=== PATIENT | female | born 1985 | race African-American/Black ===

== ENCOUNTER 2016-09-30 08:48 | Emergency (ER) | payer OTHER ==
[~2016-09-30] VITALS: Ht 165.1 cm; Wt 95.2 kg
--- NOTE | ~2016-09-30 | US134 ---
[facility] A Service of [facility] & [facility] RADIOLOGY TEXT RESULTS PATIENT: TRU MUKHERJEE LOCATION: [facility] : 81 UNIT #: [id number] AGE: [address]: Maru Perales SEX: F ORDER DR: [id number] [facility] [address] [place], [place] [address] [id number] E MR#: [id number] Acc #: [id number] NAME: TRU MUKHERJEE : 1985 SEX: F STUDY DATE/TIME: 09/30/2016 14:59 UNIT: [facility] ROOM: STUDY DESCRIPTION: US Transvaginal Attending Physician: Maru Perales Pa-C Ordering Physician: Ed Doc Isaac Donovan Primary Care Physician: No Primary Care Physician MEDICAL IMAGING REPORT This report is preliminary unless electronic signature is present EXAM Transvaginal pelvic ultrasound. INDICATIONS Right-sided pelvic pain for one day with history of ovarian cyst. TECHNIQUE Transabdominal images were limited and the ovaries cannot be seen transabdominally. FINDINGS On transvaginal images, the uterus is about 8.7 x 4.4 x 5.2 cm. The endometrial tissue is normal at about 12 mm in thickness. The right and left ovaries are visualized and they are about 3.5 cm in diameter, and no cysts are identified. There is normal flow in each ovary. IMPRESSION Normal pelvic ultrasound. No cause for right pelvic pain is identified. Dictated by... Syed Ramos M.D. THIS IS AN ELECTRONICALLY VERIFIED REPORT Syed Ramos M.D. at 09/30/2016 8:15 PM VANDANA/ean TD: 09/30/2016 19:54 JOB #: [id number] MEDICAL IMAGING REPORT Page 1 of 1 COPY
--- NOTE | ~2016-09-30 | CT2 ---
[facility] A Service of [facility] & [facility] RADIOLOGY TEXT RESULTS PATIENT: TRU MUKHERJEE LOCATION: [facility] : 81 UNIT #: [id number] AGE: [address]: Maru Perales SEX: F ORDER DR: [id number] [facility] [address] [place], [place] [address] [id number] E MR#: [id number] Acc #: [id number] NAME: TRU MUKHERJEE : 1985 SEX: F STUDY DATE/TIME: 09/30/2016 12:29 UNIT: [facility] ROOM: STUDY DESCRIPTION: CT Abd and Pelv W Cont Attending Physician: Maru Perales Pa-C Ordering Physician: Ed Doctor [id number] [facility] Primary Care Physician: Primary Care Physician No MEDICAL IMAGING REPORT This report is preliminary unless electronic signature is present EXAM CT abdomen and pelvis, 09/30/2016 HISTORY Vomiting, right lower quadrant pain since 09/29/2016. TECHNIQUE CT abdomen and pelvis performed with intravenous administration of 100 mL Isovue-370. This CT exam was performed with one or more of the following radiation dose reduction techniques: automatic exposure control, adjustment of mA and/or kV according to patient size, and iterative reconstruction. FINDINGS The special procedures technologist indicates the patient was scratching various places after examination. The patient stated she was itching before the IV contrast and that this was normal for her. special procedures technologist indicates the patient had no trouble breathing and did not have any evidence of hives. The patient's emergency room nurse was notified of events. The lungs show minimal dependent atelectasis. At the left lung base posterolaterally on image 14 there is a 4.3 mm nodule and just inferolateral to this there is a 2.7 mm nodule. There is a small right middle lobe 2.4 mm nodule on image #1. The inferior heart and pericardium are unremarkable. Liver appears relatively low in overall density suggesting fatty infiltration. The gallbladder, spleen, pancreas, adrenal glands, kidneys unremarkable. Liver is mildly enlarged at 18.3 cm in craniocaudal extent. CT PELVIS: No inguinal adenopathy. Urinary bladder, uterus and adnexal regions show prior tubal ligation. Hypodense but not clearly simple cystic structure in the right ovary measuring up to about 3.2 cm in STS. [facility] A Service of [facility] RADIOLOGY TEXT RESULTS PATIENT: TRU UMKHERJEE LOCATION: [facility] : 81 UNIT #: [id number] AGE: [address]: Maru Perales SEX: F ORDER DR: maximum diameter. Probably complicated physiologic cyst given this patient's age. It could be further evaluated with elective pelvic ultrasound. There is no free fluid in the pelvis. No pelvic or retroperitoneal adenopathy. The distal esophagus, stomach, small bowel unremarkable. Appendix normal. Colon shows a few scattered uncomplicated colonic diverticula. The vascular structures are unremarkable. The bony structures show no acute abnormality. IMPRESSION 1. 3.2 cm hypodense but not simple cystic appearing structure in the right ovary. Probably complicated physiologic cyst given the patient's young age. Best further characterized with pelvic ultrasound inclusive of transvaginal imaging. This could be performed on an elective basis. The uterus and adnexal regions otherwise notable only for evidence of prior tubal ligation. 2. Fatty filtration of liver. No focal parenchymal abnormality. Mild hepatic enlargement. 3. Gallbladder, pancreas, kidneys, appendix normal. 4. A few scattered colonic uncomplicated diverticula are present. 5. Bilateral subpleural noncalcified pulmonary nodules. Largest measuring 4.0 mm at left lung base. If patient has risk factors for pulmonary malignancy such as history of tobacco usage, 12-month CT followup would be recommended unless there are outside studies demonstrating prolonged stability. If the patient does not have risk factors for pulmonary malignancy, no additional followup recommended. Dictated by... Cecil Flores M.D. THIS IS AN ELECTRONICALLY VERIFIED REPORT Cecil Flores M.D. at 10/01/2016 2:46 PM Dave TD: 09/30/2016 15:42 JOB #: [id number] MEDICAL IMAGING REPORT Page 1 of 1 COPY
[2016-09-30 10:38] LABS: BASOPHIL% 0.5 % (0-2.5); EOSINOPHIL# 0.2 X10e3 (0-0.7); EOSINOPHIL% 2.3 % (0.0-7.0); HEMATOCRIT 38.9 % (35.0-45.0); HEMOGLOBIN 12.6 gm/dL (12.0-16.0); LYMPHOCYTE# 2.1 X10e3 (1.0-3.5); LYMPHOCYTE% 30.2 % (17.0-45.0); MEAN CELL VOLUME 85.3 FL (83-96); MEAN CORPUSCULAR HEMOGLOBIN 27.5 PG (28-34); MEAN CORPUSCULAR HGB CONC 32.2 g/dL (30-36); MONOCYTE# 0.6 X10e3 (0-1.0); MONOCYTE% 9.1 % (3.0-12.0); NEUTROPHIL% 57.9 % (40-75); PLATELET COUNT 214 X10e3 (140-420); RED BLOOD COUNT 4.56 X10e (3.90-5.30); RED CELL DISTRIBUTION WIDTH 13.7 % (11.0-15.5)
[2016-09-30 10:42] LABS: DIFF IND NO
[2016-09-30 11:04] LABS: ALBUMIN SERUM 3.6 g/dL (3.5-5.0); BILIRUBIN, DIRECT 0.1 mg/dL (0.0-0.2); BILIRUBIN,INDIRECT 0.7 mg/dL (0.0-0.9); BILIRUBIN,TOTAL 0.8 mg/dL (0.2-2.0); BUN/CREATININE RATIO 16.66; CALCIUM SERUM 8.6 mg/dL (8.4-10.2); CREATININE SERUM 0.9 mg/dL (0.6-1.4); GLOM FILT RATE Estimated 97.4 mL/min (>60); POTASSIUM 3.4 mmol/L (3.5-5.1); PROTEIN TOTAL SERUM 6.9 g/dL (6.0-8.3)
[2016-09-30 11:42] LABS: URINE SOURCE CLEAN CATCH
[2016-09-30 12:08] LABS: URINE APPEARANCE CLEAR; URINE BILIRUBIN NEG (NEG); URINE BLOOD NEG (NEG); URINE COLOR YELLOW; URINE GLUCOSE NEG (NEG); URINE KETONE NEG (NEG); URINE LEUKOCYTE ESTERASE 1+ (NEG); URINE NITRATE NEG (NEG); URINE PH 5.5 (5-8); URINE PROTEIN NEG (NEG); URINE SPECIFIC GRAVITY 1.019 (1.003-1.035); URINE UROBILINOGEN 0.2 MG/DL (NEG)
[2016-09-30 12:10] LABS: U HYALINE CASTS AUWI 0-2 /[LPF]; URINE BACTERIA AUWI 1+ (NEGATIVE); URINE SQUAMOUS EPITHELIAL CELL OCC /[HPF]
== END 2016-09-30 15:57 | disposition home or self-care (01) ==
LOC: CED 08:48
PROVIDERS: Physician Assistant
DX: N39.0 Urinary tract infection, site not specified (principal); N83.201 Unspecified ovarian cyst, right side; Z98.890 Other specified postprocedural states; F17.200 Nicotine dependence, unspecified, uncomplicated
CPT/HCPCS: 36415; 74177; 76830; 80048; 80076; 81003; 83690; 84703; 85025; 96361; 96374; 96375; 96376; 99284; J2270; J2405; Q9967